=== PATIENT | male | born 1945 | race Caucasian/White ===

== ENCOUNTER → 2020-04-24 | Outpatient (CLI) | payer MEDICARE | LOC: LAB 14:02 | PROVIDERS: ATTEND Dentist Oral and Maxillofacial Surgery | DX: Z01.812 Encounter for preprocedural laboratory examination (principal); Z20.828 Contact with and (suspected) exposure to other viral communicable diseases | CPT/HCPCS: U0003 ==

== ENCOUNTER 2020-04-28 06:09 | Day surgery (SDC) | payer MEDICARE ==
[~2020-04-28] VITALS: Ht 177.8 cm; Wt 109.3 kg
[~2020-04-28 06:09] MED LIST: BACITRACIN 50,000 UNIT in IV NORMAL SALINE 500ML BAG 500 ML IRR ONE; BUPIVACAINE-EPI 0.5%-1:200000 MPF 30 ML VIAL. INJ ONE; CHLORHEXIDINE 0.12% 15 ML MOUTHWASH. SWSP ONE
[2020-04-28] MEDS ORDERED: BYSTOLIC20 MG PO (06:52)
[2020-04-28] MEDS ORDERED: ASCO500C PO (06:52)
[2020-04-28] MEDS ORDERED: ASPI-630 PO (06:52)
[2020-04-28] MEDS ORDERED: ATOR40TA59 PO (06:52)
[2020-04-28] MEDS ORDERED: DEMADEX (06:52)
[2020-04-28] MEDS ORDERED: VENL37.5 PO (06:52)
[2020-04-28] MEDS ORDERED: DOXA4TAB2 PO (06:52)
[2020-04-28] MEDS ORDERED: MYCO500T PO (06:52)
[2020-04-28] MEDS ORDERED: SERT100T PO (06:52)
[2020-04-28] MEDS ORDERED: ALLO100T PO (06:52)
[2020-04-28] MEDS ORDERED: TACR0.5C20 PO (06:52)
[2020-04-28] MEDS ORDERED: BUPR150T15 PO (06:52)
[2020-04-28] MEDS ORDERED: CAND8TAB10 PO (06:52)
[2020-04-28] MEDS ORDERED: IV RINGERS,LACTATED 1000ML 1,000 ML IV SCH (07:00)
[2020-04-28] MEDS ORDERED: fentaNYL PF VIAL 100 MCG/2 ML VIAL IV PRN ×2 (07:00)
[2020-04-28] MEDS ORDERED: MORPHINE SULFATE 2 MG/ML VIAL. IV PRN (07:00)
[2020-04-28] MEDS ORDERED: ONDANSETRON PF 4 MG/2 ML VIAL. IV PRN (07:00)
[2020-04-28] MEDS ORDERED: PROCHLORPERAZINE 10 MG/2 ML VIAL. IV PRN (07:00)
[2020-04-28] MEDS ORDERED: HYDROmorphone 2 MG/ML VIAL IV PRN (07:00)
[2020-04-28] MEDS ORDERED: LIDOCAINE 1% PF 2 ML VIAL. ID PRN (07:00)
[2020-04-28] MEDS ORDERED: PROPOFOL 10 MG/ML (20ML) VIAL. IV ONE (07:11)
[2020-04-28] MEDS ORDERED: CHLORHEXIDINE 0.12% 15 ML MOUTHWASH. ONE (07:12)
[2020-04-28] MEDS ORDERED: SUCCINYLCHOLINE 200 MG/10 ML VIAL. ONE (07:12)
[2020-04-28] MEDS ORDERED: ROCURONIUM 50 MG/5 ML VIAL. ONE (07:12)
[2020-04-28] MEDS ORDERED: GELATIN SPONGE SIZE 100. ONE ×2 (07:12→08:26)
[2020-04-28] MEDS ORDERED: fentaNYL PF VIAL 100 MCG/2 ML VIAL ONE (07:12)
[2020-04-28] MEDS ORDERED: ONDANSETRON PF 4 MG/2 ML VIAL. ONE (07:43)
[2020-04-28] MEDS ORDERED: DESFLURANE 61 TO 120 MINUTES IH ONE (07:43)
[2020-04-28] MEDS ORDERED: DEXAMETHASONE SOD PHOS 4 MG/ML VIAL ONE (07:43)
[2020-04-28] MEDS ORDERED: GLYCOPYRROLATE 1 MG/5 ML VIAL. ONE (07:54)
[2020-04-28] MEDS ORDERED: NEOSTIGMINE METHYLSULFATE 5 MG/5 ML SYRINGE. ONE (07:54)
[2020-04-28] MEDS ORDERED: PHENYLEPHRINE in 0.9% NACL PF 1 MG/10 ML SYRINGE. IV ONE (08:06)
[2020-04-28] MEDS ORDERED: CHLORHEXIDINE 0.12% 15 ML MOUTHWASH. SWSP ONE (08:15)
[2020-04-28] MEDS ORDERED: BUPIVACAINE-EPI 0.5%-1:200000 MPF 30 ML VIAL. INJ ONE (08:15)
[2020-04-28] MEDS ORDERED: BACITRACIN 50,000 UNIT in IV NORMAL SALINE 500ML BAG 500 ML IRR ONE (08:15)
--- NOTE | 2020-04-28 10:00 | PDOC4 ---
OPERATIVE NOTE Date: Date: Apr 28, 2020 Pre-Op Diagnosis: Cardiac transplant Caries, non restorable teeth # 4,5,6,7,8,9,10,18,20,21,22,23,24,25,26,27 buccal extostosis UL, UR, LL, LR bilateral mandibular tara Post-Op Diagnosis: Cardiac transplant Caries, non restorable teeth # 4,5,6,7,8,9,10,18,20,21,22,23,24,25,26,27 buccal extostosis UL, UR, LL, LR bilateral mandibular tara Procedure Performed: romoval of Caries, non restorable teeth # 4,5,6,7,8,9,10,18,20,21,22,23,24,25,26,27 buccal extostosis UL, UR, LL, LR alveoloplasty UL, UR, LL, LR bilateral mandibular taar Surgeon: laxmi Anesthesia Type: jaxx Blood Loss: 100 Specimans Obtained: none teeth disposed of in OR Findings: see dictation Complications: none Operative Note: see dictation removal of : Caries, non restorable teeth # 4,5,6,7,8,9,10,18,20,21,22,23,24,25,26,27 buccal extostosis UL, UR, LL, LR bilateral mandibular tara TELMA CHAPMAN DMD Apr 28, 2020 10:00
--- NOTE | 2020-04-28 11:34 | OP ---
DATE OF SURGERY: 04/28/2020 OPERATING SERVICE: [email or web address]. OPERATING PHYSICIAN: Telma Chapman DMD. PREOPERATIVE DIAGNOSES: 1. Status post cardiac transplant for cardiac failure. 2. Caries and nonrestorable dentition, teeth numbers are 4, 5, 6, 8, 9, 10, 18, 20, 21, 22, 23, 24, 25, 26, 27. He has bilateral mandibular tara. He also has buccal exostoses in all 4 quadrants. POSTOPERATIVE DIAGNOSES. 1. Status post cardiac transplant for cardiac failure. 2. Caries and nonrestorable dentition, teeth numbers are 4, 5, 6, 8, 9, 10, 18, 20, 21, 22, 23, 24, 25, 26, 27. He has bilateral mandibular tara. He also has buccal exostoses in all 4 quadrants. PROCEDURES PERFORMED: 1. General anesthetic. 2. Removal of aforementioned teeth 4, 5, 6, 8, 9, 10, 18, 20, 21, 22, 23, 24, 25, 26, 27 including alveoloplasty upper right, lower left, lower right, lower left and removal of buccal exostoses upper right, upper left, lower right, lower left and removal of bilateral mandibular tara. BRIEF HISTORY: The patient is a 75-year-old male who has been seen in our clinic previously for removal of a single nonrestorable tooth. At this point in time, his dentition is failing due to heavy bruxism wear and caries and periodontal disease. I reviewed the risks, alternatives, and benefits with this patient. He has been referred for extraction of all remaining teeth and preprosthetic surgery and preparation for denture fabrication. History and physical was performed in our clinic and the setting of care was escalated to the OR to manage the patient as he has a status post cardiac transplant x 5-6 years. He has been surviving well at this time. His transplant physician was consulted and he agreed with our plan. Permit was obtained and the patient was scheduled for surgery at [facility]. DRAINS PLACED: None. SPECIMEN SENT: None. Teeth were disposed off in the OR. COMPLICATIONS: None noted at the time of surgery. No cultures were taken. ESTIMATED BLOOD LOSS: Approximately 100 mL. OPERATIVE DESCRIPTION: After the history and physical was updated in the preoperative holding area, the patient was transported by the operating service to the operating suite. The patient was placed in the supine position. General anesthesia was induced. The patient was then intubated without complication and the tube was secured to the upper left face. All pressure points were checked and padded. The patient was prepped and draped in the normal sterile fashion. Timeout was initiated by surgical staff, all perioperative staff was in agreeance. Moistened throat pack was placed. Local anesthesia in the form of 0.5% bupivacaine, 1:200,000 epinephrine was administered in the surgical areas in the oral cavity in all 4 quadrants. The bite block was placed and utilized as well as the Wieder tongue retractor. A #15 blade was brought to the field and full thickness mucoperiosteal flaps were reflected in the upper right, upper left, lower right and lower left quadrants. The exostoses were removed with rotary instrumentation. The teeth were luxated, elevated and extracted. All teeth that were removed were his complete remaining dentition, teeth numbers 4, 5, 6, 8, 9, 10, 18, 20, 21, 22, 23, 24, 25, 26, 27. Teeth were luxated, elevated and extracted with hand instruments. Rotary instrumentation concluded with the removal of the buccal exostosis. Hand instruments including the rongeur and bone file were utilized to reduce all the bony undercuts to allow for denture placement. These were smoothed with a bone file. All extraction sites were curetted with curettage and lavaged with copious normal sterile saline. The bilateral mandibular tara were then removed with rotary instrumentation with copious normal sterile saline irrigation. All sites were then lavaged and suctioned. The subperiosteal flaps were irrigated and lavaged and suctioned. Gelfoam was placed in all remaining extraction sites and oversewn with 3-0 chromic gut sutures in a running locked fashion. This was performed in all 4 quadrants. The oral cavity was found to be hemostatic at this time. Oral cavity was then lavaged and suctioned. The moistened throat pack was removed. An OG was passed and the stomach was decompressed. The patient was then returned to the care of Anesthesia where he was awakened and extubated without complication and transported by the PACU in a stable condition. TELMA CHAPMAN DMD DR: KRYSTIAN/mattie JOB#: [id number] / [id number] MARCELINO
[2020-04-28 11:50] VITALS: BP 138/86
== END 2020-04-28 11:52 | disposition home or self-care (01) ==
LOC: SURG 06:09
PROVIDERS: ATTEND Dentist Oral and Maxillofacial Surgery
DX: K02.63 Dental caries on smooth surface penetrating into pulp (principal); I10 Essential (primary) hypertension; M19.90 Unspecified osteoarthritis, unspecified site; F41.9 Anxiety disorder, unspecified; F32.9 Major depressive disorder, single episode, unspecified; E78.00 Pure hypercholesterolemia, unspecified; K21.9 Gastro-esophageal reflux disease without esophagitis; M10.9 Gout, unspecified; Z94.1 Heart transplant status; Z79.82 Long term (current) use of aspirin; Z79.899 Other long term (current) drug therapy; Z98.890 Other specified postprocedural states; Z87.891 Personal history of nicotine dependence
CPT/HCPCS: 41899; A7015; J0330; J0690; J1100; J2370; J2405; J2704; J2710; J3010; J3490; J7040; J7120